=== PATIENT | female | born 1990 | race Caucasian/White ===

== ENCOUNTER 2018-06-15 12:51 | Emergency (ER) | payer OTHER ==
[2018-06-15] MEDS ORDERED: DIAZEPAM 5 MG/ML 2 ML INJ IVP STA (14:16)
[2018-06-15] MEDS ORDERED: METOCLOPRAMIDE 5 MG/ML 2 ML VIAL IVP STA (14:16)
[2018-06-15] MEDS ORDERED: NITROGLYCERIN SL TABS 0.4 MG TAB SUBLINGUAL STA (14:16)
[2018-06-15] MEDS ORDERED: GLUCAGON 1 MG/ML VIAL IVP STA (14:17)
[2018-06-15 14:57] VITALS: RESP 16
--- NOTE | 2018-06-15 15:59 | ED ---
General Adult HPI - General Chief complaint: ENT Stated complaint: vomiting/poss food in throat Time Seen by Provider: 06/15/18 13:24 Source: patient, RN notes reviewed Mode of arrival: ambulatory Limitations: no limitations - History of Present Illness Initial comments: 27-year-old female presents to the emergency department for a chief complaint of possible food stuck in throat. Patient states this has been ongoing 4 hours. She states she was swallowing [place] when this occurred. Patient denies difficulty swallowing saliva. She states she went to [facility] and received glucagon but it did not help. Patient then left [facility] and refused ambulance ride to come to our emergency department. After presenting, patient is not having any difficulty handling oral secretions. Patient states she is having difficulty swallowing water and solids. Patient states she has a foreign body sensation in her throat. She denies any shortness of breath. She does admit to some nausea. Patient denies any history of strictures. She does state this has occurred before but she has always been able to clear the food bolus.Patient has no other complaints at this time including shortness of breath , chest pain, abdominal pain, nausea or vomiting, headache, or visual changes. - Related Data Allergies Allergy/AdvReac Type Severity Reaction Status Date / Time No Known Allergies Allergy Verified 06/15/18 13:10 Review of Systems ROS Statement: Those systems with pertinent positive or pertinent negative responses have been documented in the HPI. ROS Other: All systems not noted in ROS Statement are negative. 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 Absent: scleral icterus, conjunctival injection, periorbital swelling ENT exam: Present: normal exam, normal oropharynx (Oropharynx patent), mucous membranes moist Neck exam: Present: normal inspection, full ROM. Absent: tenderness, meningismus, lymphadenopathy Respiratory exam: Present: normal lung sounds bilaterally. Absent: respiratory distress, wheezes, rales, rhonchi, stridor Cardiovascular Exam: Present: regular rate, normal rhythm, normal heart sounds. Absent: systolic murmur, diastolic murmur, rubs, gallop, clicks GI/Abdominal exam: Present: soft, normal bowel sounds. Absent: distended, tenderness, guarding, rebound, rigid Neurological exam: Present: alert, oriented X3, CN II-XII intact Psychiatric exam: Present: normal affect, normal mood Course Vital Signs 06/15/18 06/15/18 06/15/18 13:08 14:39 14:47 Temperature 98.1 F Pulse Rate 82 104 H 105 H Respiratory 18 18 16 Rate Blood Pressure 126/84 144/96 163/77 O2 Sat by Pulse 100 99 100 Oximetry Medical Decision Making - Medical Decision Making 27-year-old female presents to the emergency department for a chief complaint of foreign body sensation in throat. Patient was eating begin when this occurred. She was seen at [facility] and given glucagon without relief of symptoms. On presentation patient is not having any difficulty handling oral secretions. However patient does have some difficulty swallowing water. When attempting to swallow Jell-O she coughs it up and states it is making the sensation in her throat feel worse. Patient was given Reglan, Valium, nitroglycerin sublingual, and glucagon. She then drank Vernors. After this, food bolus seems to have passed. patient is now able to swallow Jell-O without any difficulty whatsoever. She ate 2 containers without difficulty. She drank 2 cans of Vernors without any difficulty. Patient cannot try crackers because she is ALLERGIC to wheat. She did bite the end off of a popsicle and swallowed that demonstrating she is able to swallow solids. Patient states foreign body sensation is completely resolved at this time. I did discuss following up with GI as patient needs endoscopy to evaluate for strictures. I discussed cutting food up into small pieces until she receives endoscope to prevent this from reoccurring. She will return here if she has any worsening symptoms. Otherwise she will follow-up with primary care in 1-2 days. Disposition Clinical Impression: Sensation of foreign body in throat Disposition: HOME SELF-CARE Condition: Good Instructions: Esophageal Foreign Body (ED) Additional Instructions: Please follow up with GI in 1-2 days. Please cut food up into small pieces until you receive endoscopy. Please return to the emergency department if you have any worsening or recurring symptoms. Is patient prescribed a controlled substance at d/c from ED?: No Referrals: Kavon Wallis MD [Primary Care Provider] - 1-2 days Ray Johnson MD [STAFF PHYSICIAN] - 1-2 days Time of Disposition: 15:58
[2018-06-15 16:11] VITALS: BP 137/84; PULSE 88; TEMP 97.9
== END 2018-06-15 16:10 | disposition home or self-care (01) ==
LOC: EC 12:51
DX: R09.89 Other specified symptoms and signs involving the circulatory and respiratory systems (principal); R13.10 Dysphagia, unspecified; R11.0 Nausea; Z91.018 Allergy to other foods
CPT/HCPCS: 99283; 96374; 96375 ×2; J1610; J2765; J3360

== ENCOUNTER → 2024-11-03 | Day surgery (SDC) | payer OTHER ==
[~2024-11-03] MED LIST: LIDOCAINE 2% (PF) 20 MG/ML 5 ML VIAL ONE; PROPOFOL 10 MG/ML 20 ML VIAL IV ONE
--- NOTE | 2024-11-03 08:05 | P.GSHP ---
History of Present Illness H&P Date: 11/03/24 CHIEF COMPLAINT: GERD HISTORY OF PRESENT ILLNESS: The patient is a 34-year-old female who presents reports gastroesophageal reflux disease and dysphagia. Upper endoscopy was offered for further evaluation and management. PAST MEDICAL HISTORY: Please see list. PAST SURGICAL HISTORY: Please see list. MEDICATIONS: Please see list. ALLERGIES: Please see list. SOCIAL HISTORY: No illicit drug use FAMILY HISTORY: No reports of Crohn disease or ulcerative colitis. REVIEW OF ORGAN SYSTEMS: CONSTITUTIONAL: No reports of fevers or chills. GI: Denies any blood in stools or constipation. PHYSICAL EXAM: VITAL SIGNS: Stable GENERAL: Well-developed and pleasant in no acute distress. HEENT: No scleral icterus. Extraocular movements grossly intact. Moist buccal mucosa. NECK: Supple without lymphadenopathy. CHEST: Unlabored respirations. Equal bilateral excursions. CARDIOVASCULAR: Regular rate and rhythm. Distal 2+ pulses. ABDOMEN: Soft, nondistended. MUSCULOSKELETAL: No clubbing, cyanosis, or edema. ASSESSMENT: 1. Gastroesophageal reflux disease and dysphagia PLAN: 1. 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, seasonal allergies, swallowing issues, prepping for a sleeve procedure History of Any Multi-Drug Resistant Organisms: None Reported Past Surgical History: Cholecystectomy Additional Past Surgical History / Comment(s): Melanoma rt eye removed/radiation, cataract sx rt eye, carpal tunnel surgery rt and lt hand Past Anesthesia/Blood Transfusion Reactions: No Reported Reaction Smoking Status: Never smoker - Past Family History Mother Family Medical History: Hypertension Father History Unknown: Yes Medications and Allergies Home Medications Medication Instructions Recorded Confirmed Type Cetirizine HCl 10 mg PO HS 10/01/24 10/31/24 History Metoprolol Succinate [Toprol XL] 25 mg PO BID 10/01/24 10/31/24 History NIFEdipine [NIFEdipine ER 90 tab PO HS 10/01/24 10/31/24 History (Osmotic)] Unk Multi Vitamin 1 tab PO DAILY 10/31/24 10/31/24 History Allergies Allergy/AdvReac Type Severity Reaction Status Date / Time wheat Allergy Anaphylaxis Verified 10/31/24 11:13
[2024-11-03 09:26] VITALS: TEMP 97.5
[2024-11-03] MEDS: LACTATED RINGERS 1,000 ML IV SCH (09:31)
[2024-11-03] MEDS: IV FLUID CONTINUATION 1,000 ML IV ONE (09:31)
--- NOTE | 2024-11-03 10:15 | P.PCN ---
Date of Procedure: 11/03/24 Description of Procedure: PREOPERATIVE DIAGNOSIS: Dysphagia Gastroesophageal reflux disease Morbid obesity excess calories, BMI 51.2 POSTOPERATIVE DIAGNOSIS: Upper esophageal stenosis Gastroesophageal reflux disease Gastritis Duodenitis OPERATION: Esophagogastroduodenoscopy with rigid dilator over the guidewire 57 Fr with dilation Esophagogastroduodenoscopy with cold forceps biopsies stomach/antrum, esophagus, duodenum SURGEON: Virginia Whitten MD ANESTHESIA: MAC. INDICATIONS: The patient is a 34-year-old male who presents with dysphagia. Benefits and risks of the procedure were described. Informed consent was obtained. DESCRIPTION: The patient was brought into the endoscopy suite and laid in the left lateral decubitus position. After a timeout was confirmed, the procedure was initiated. An Olympus gastroscope was passed into the posterior oropharynx where an upper esophageal stenosis was identified. The scope was passed down to the distal esophagus. To address the upper esophageal stenosis, rigid dilator over guidewire was selected. Next using an Montenegrin rigid dilator, a guidewire was placed through the gastroscope. Next the scope was withdrawn. A 57-Rwandan rigid [place]enegrin dilator was passed carefully along the posterior oropharynx to 45 cm and left in place for 2-3 minutes stretch. The dilator was withdrawn including the guidewire. The scope was reentered along the posterior oropharynx with no findings of full- thickness tear of the upper esophageal sphincter. Additional findings below. Within the stomach, moderate gastritis including bile reflux were identified along the body of the stomach with cold forceps biopsies obtained. The duodenum was assessed. The lower esophageal valve was evaluated with Hill grade 2 lower esophageal valve. LA grade B erosive esophagitis was identified. No full-thickness injury was encountered. The GI tract was desufflated. The patient tolerated the procedure well. FINDINGS: Upper esophageal stenosis dilated 57-Rwandan rigid dilator Diaphragmatic hiatus at 36 cm from the incisors Squamocolumnar junction 36 cm from the incisors. Moderate bile reflux with gastritis, biopsies obtained. Duodenum with mild duodenitis. Biopsies obtained LA grade B erosive esophagitis. Biopsies obtained Hill grade 2 lower esophageal valve. RECOMMENDATIONS: Upper endoscopy as needed Plan - Discharge Summary Discharge Rx Participant: No New Discharge Prescriptions: Continue Cetirizine HCl 10 mg PO HS Unk Multi Vitamin 1 tab PO DAILY NIFEdipine [NIFEdipine ER (Osmotic)] 90 tab PO HS Metoprolol Succinate [Toprol XL] 25 mg PO BID Discharge Medication List Cetirizine HCl 10 mg PO HS 10/01/24 [History] Metoprolol Succinate [Toprol XL] 25 mg PO BID 10/01/24 [History] NIFEdipine [NIFEdipine ER (Osmotic)] 90 tab PO HS 10/01/24 [History] Unk Multi Vitamin 1 tab PO DAILY 10/31/24 [History] [facility] [facility] [place] 11/19/24 3:00 pm Patient Instructions/Handouts: Gastritis (DC) Discharge Disposition: HOME SELF-CARE
[2024-11-03 10:23] VITALS: BP 135/84
[2024-11-03 10:32] VITALS: PULSE 79; RESP 16
== END | disposition home or self-care (01) ==
LOC: ORWHC2ENDO 09:03
PROVIDERS: ATTEND Surgery Plastic and Reconstructive Surgery
DX: K29.50 Unspecified chronic gastritis without bleeding (principal); K29.80 Duodenitis without bleeding; K21.00 Gastro-esophageal reflux disease with esophagitis, without bleeding; I10 Essential (primary) hypertension; E66.01 Morbid (severe) obesity due to excess calories; Z68.43 Body mass index [BMI] 50.0-59.9, adult; Z90.49 Acquired absence of other specified parts of digestive tract; Z85.820 Personal history of malignant melanoma of skin; Z82.49 Family history of ischemic heart disease and other diseases of the circulatory system; Z79.899 Other long term (current) drug therapy
CPT/HCPCS: 81025; 88305; 43239; 43248; J2704; J2003